=== PATIENT | female | born 1940 | race Caucasian/White ===

== ENCOUNTER → 2018-02-19 | Outpatient (CLI) | payer OTHER | END | disposition home or self-care (01) | LOC: CFH 10:33 | PROVIDERS: ATTEND Nurse Practitioner Family | DX: Z12.31 Encounter for screening mammogram for malignant neoplasm of breast (principal); Z13.820 Encounter for screening for osteoporosis; M85.88 Other specified disorders of bone density and structure, other site; M81.0 Age-related osteoporosis without current pathological fracture; N95.1 Menopausal and female climacteric states | CPT/HCPCS: 77080; 77067 ==

== ENCOUNTER 2019-09-27 14:44 | Emergency (ER) | payer MEDICARE ==
[~2019-09-27] VITALS: Ht 165.1 cm; Wt 67.2 kg
[~2019-09-27 14:44] MED LIST: AZIT500T10 PO; CEFD300C37 PO; LEVO50TA5 PO; LISI-167 PO
--- NOTE | 2019-09-27 14:52 | NUR ---
OCCASIONAL COUGH NOTED. RESP UNLABORED, ABLE TO SPEAK IN COMPLETE SENTENCES W/OUT DIFFICULTY.
--- NOTE | 2019-09-27 15:06 | NUR ---
PT AMBULATES TO ROOM FROM LOBBY WITH STEADY GAIT.
--- NOTE | 2019-09-27 15:46 | NUR ---
PT RESTING IN [facility] ON VS AND CARDIAC MONITORS. VSS. EKG AND XRAY PERFORMED AT BS. PT HAS CALL LIGHT WITHIN REACH AT THIS TIME AND DENIES ANY NEEDS AT THIS MOMENT.
[2019-09-27 15:59] LABS: BASOPHILS # (AUTO) 0.03 x10^3/uL (0-0.1); BASOPHILS % (AUTO) 0 % (0-1); EOSINOPHILS # (AUTO) 0.21 x10^3/uL (0-0.4); EOSINOPHILS % (AUTO) 2 % (1-7); LYMPHOCYTES # (AUTO) 1.45 x10^3/uL (1-3.4); LYMPHOCYTES % (AUTO) 15 % (22-44); MD NO; MEAN CORPUSCULAR HEMOGLOBIN 29.1 pg (27.0-34.8); MEAN CORPUSCULAR HGB CONC 33.4 g/dL (32.4-35.8); MEAN PLATELET VOLUME 8.3 fL (7.4-10.4); MONOCYTES # (AUTO) 0.88 x10^3/uL (0.2-0.8); MONOCYTES % (AUTO) 9 % (2-9); NEUTROPHILS % (AUTO) 74 % (42-75); PLATELET COUNT 465 x10^3/uL (130-400); RED BLOOD COUNT 3.97 x10^6/uL (3.82-5.3); RED CELL DISTRIBUTION WIDTH 13.3 % (9.6-15.2)
[2019-09-27 16:06] LABS: ALBUMIN 2.8 g/dL (3.4-5.0); ANION GAP 6 mmol/L (5-15); CALCIUM 8.4 mg/dL (8.5-10.1); CHLORIDE 107 mmol/L (98-107); CREATININE 0.92 mg/dL (0.55-1.02)
--- NOTE | 2019-09-27 16:20 | NUR ---
PT SWABBED FOR COVID AT THIS TIME.
--- NOTE | 2019-09-27 17:15 | NUR ---
PT D/C WITH D/C SUMMARY AND SCRIPTS. ALL QUESTIONS ANSWERED. PT AMBULATES TO AMBULANCE BAY WITH STEADY GAIT FOR D/C HOME WITH DAUGHTER.PT DENIES ANY OTHER NEEDS PERTAINING TO THIS VISIT.
[2019-09-27 17:20] VITALS: BP 141/69
== END 2019-09-27 17:23 | disposition home or self-care (01) ==
LOC: ED 15:15
DX: R06.00 Dyspnea, unspecified (principal); Z20.828 Contact with and (suspected) exposure to other viral communicable diseases; R05 Cough; R06.02 Shortness of breath; R94.31 Abnormal electrocardiogram [ECG] [EKG]; I10 Essential (primary) hypertension; J45.909 Unspecified asthma, uncomplicated; E03.9 Hypothyroidism, unspecified
CPT/HCPCS: 36415; 71045; 80048; 82040; 85025; 93005; 99285; U0001

== ENCOUNTER 2019-10-10 10:55 | Inpatient (IN) | payer MEDICARE ==
[~2019-10-10] VITALS: Ht 165.1 cm; Wt 65.5 kg
--- NOTE | 2019-10-10 11:33 | NUR ---
PT REPORTS WORSENING SOB, COUGH SINCE BEING HERE ON AND PRESCRIBED ANTIBIOTICS FOR PNEUMONIA. PT WAS PRESCRIBED HOME O2 OF 2 LITERS 2 DAYS AGO BY PMD. PT ON AND IS SATING 96% ON 4 LITERS IN NAD. PT DENIES CP. WAITING FOR ORDERS.
[2019-10-10] MEDS ORDERED: SODIUM CHLORIDE FLUSH 10ML SYR IVF ONE (12:00)
[2019-10-10 12:20] LABS: BASOPHILS # (AUTO) 0.05 x10^3/uL (0-0.1); BASOPHILS % (AUTO) 0 % (0-1); EOSINOPHILS # (AUTO) 0.14 x10^3/uL (0-0.4); EOSINOPHILS % (AUTO) 1 % (1-7); LYMPHOCYTES # (AUTO) 1.08 x10^3/uL (1-3.4); LYMPHOCYTES % (AUTO) 9 % (22-44); MD NO; MEAN CORPUSCULAR HGB CONC 32.5 g/dL (32.4-35.8); MEAN CORPUSCULAR VOLUME 86.2 fL (80-100); MEAN PLATELET VOLUME 8.2 fL (7.4-10.4); MONOCYTES # (AUTO) 0.75 x10^3/uL (0.2-0.8); MONOCYTES % (AUTO) 6 % (2-9); NEUTROPHILS # (AUTO) 9.88 x10^3/uL (1.8-6.8); NEUTROPHILS % (AUTO) 83 % (42-75); PLATELET COUNT 526 x10^3/uL (130-400); RED BLOOD COUNT 3.67 x10^6/uL (3.82-5.3); RED CELL DISTRIBUTION WIDTH 13.9 % (9.6-15.2)
[2019-10-10 12:27] LABS: ALBUMIN 1.8 g/dL (3.4-5.0); ANION GAP 7 mmol/L (5-15); CALCIUM 8.3 mg/dL (8.5-10.1); CHLORIDE 105 mmol/L (98-107)
[2019-10-10 12:29] LABS: ALANINE AMINOTRANSFERASE 68 U/L (12-78); ALKALINE PHOSPHATASE 85 U/L (45-117); BILIRUBIN,TOTAL 0.5 mg/dL (0.2-1.0); CREATININE 0.73 mg/dL (0.55-1.02); TOTAL PROTEIN 6.9 g/dL (6.4-8.2)
--- NOTE | 2019-10-10 12:56 | NUR ---
PT'S OXYGEN INCREASED TO 6 LITERS WHILE PT IS RESTING HER PULSE OX DROPPED TO 89%. CHART HAS BEEN UP FOR RECHECK SINCE 1234.
[2019-10-10] MEDS ORDERED: DOXYCYCLINE 100 MG in DEXTROSE 5% 250 ML IV SCH (13:00)
[2019-10-10] MEDS ORDERED: CEFTRIAXONE PMX 1GM/50ML 50 ML IV ONE (13:00)
[2019-10-10] MEDS ORDERED: CEFTRIAXONE PMX 1GM/50ML 50 ML ONE (13:02)
--- NOTE | 2019-10-10 13:08 | NUR ---
ANTIBIOTICS STARTED AFTER BLOOD CULTURES X2 WERE DRAWN.
--- NOTE | 2019-10-10 13:10 | NUR ---
PER DR. JERRY WE WILL RE-EVALUATE OXYGEN REQUIREMENTS TO DETERMINE LEVEL OF CARE IN 30 MINUTES.
[2019-10-10] MEDS ORDERED: CEFTRIAXONE PMX 1GM/50ML 50 ML IVPB ONE (14:30)
--- NOTE | 2019-10-10 14:47 | NUR ---
REPORT RECEIVED FROM CARLOS HOWARD. PLAN OF CARE DISCUSSED
[2019-10-10] MEDS ORDERED: DOXYCYCLINE 100 MG in DEXTROSE 5% 250 ML IVPB ONE (15:00)
--- NOTE | 2019-10-10 15:29 | NUR ---
Report given to CARLOS Eisenberg. Plan of care discussed.
[2019-10-10] MEDS ORDERED: ACETAMINOPHEN 325 MG TABLET PO PRN (15:30)
[2019-10-10] MEDS ORDERED: ONDANSETRON 2MG/ML, 2ML IVPush PRN (15:30)
[2019-10-10] MEDS ORDERED: ONDANSETRON ODT 4 MG PO PRN (15:30)
[2019-10-10 15:38] LABS: C-REACTIVE PROTEIN, QUANT > 19.00 mg/dL (0.02-0.49)
[2019-10-10 15:50] LABS: D-DIMER (DIC) 1.85 ug/mlFEU (0.00-0.52); PROTIME 12.7 Seconds (9.6-11.5)
[2019-10-10 16:31] VITALS: BP 144/63
[2019-10-10 16:51] LABS: HCT (SEDRATE) 31.6 % (34.6-47.8)
[2019-10-10] MEDS ORDERED: ENOXAPARIN 40 MG/0.4 ML SQ SCH (17:00)
[2019-10-10 19:35] VITALS: BP 122/61
[2019-10-11 01:37] VITALS: BP 111/59
[2019-10-11] MEDS: LISINOPRIL 20 MG TABLET PO SCH (07:53)
[2019-10-11] MEDS: ZINC SULFATE 220 MG CAPSULE PO SCH (07:54)
[2019-10-11] MEDS: CEFTRIAXONE PMX 1GM/50ML 50 ML IV SCH (07:54)
[2019-10-11] MEDS: LEVOTHYROXINE 50 MCG TABLET PO SCH (07:54)
[2019-10-11] MEDS: ASCORBIC ACID 500 MG TABLET PO SCH ×3 (07:54→20:40)
[2019-10-11 08:33] VITALS: BP 167/70
[2019-10-11] MEDS ORDERED: CHOLECALCIFEROL 400 UNITS TABLET PO SCH (09:00)
[2019-10-11] MEDS: AZITHROMYCIN 500 MG in SODIUM CHLORIDE 0.9% 250 ML IV SCH (09:16)
[2019-10-11 12:47] VITALS: BP 147/61
[2019-10-11 19:19] VITALS: BP 124/63
[2019-10-12 02:04] VITALS: BP 124/68
[2019-10-12] MEDS: CEFTRIAXONE PMX 1GM/50ML 50 ML IV SCH (06:17)
[2019-10-12 07:52] VITALS: BP 143/47
[2019-10-12] MEDS: ASCORBIC ACID 500 MG TABLET PO SCH ×3 (09:23→21:12)
[2019-10-12] MEDS: AZITHROMYCIN 500 MG in SODIUM CHLORIDE 0.9% 250 ML IV SCH (09:23)
[2019-10-12] MEDS: LEVOTHYROXINE 50 MCG TABLET PO SCH (09:23)
[2019-10-12] MEDS: methylPREDNISolone SOD SUCC 40 MG/ML IV SCH ×2 (09:23→21:12)
[2019-10-12] MEDS: LISINOPRIL 20 MG TABLET PO SCH (09:23)
[2019-10-12] MEDS: ZINC SULFATE 220 MG CAPSULE PO SCH (09:23)
[2019-10-12] MEDS: ALBUTEROL HFA 90 MCG/SPRAY INH SCH ×3 (11:37→19:59)
[2019-10-12 13:54] VITALS: BP 121/62
[2019-10-12] MEDS: ENOXAPARIN 60 MG/0.6 ML SQ SCH (16:07)
[2019-10-12 19:39] VITALS: BP 116/55
[2019-10-12] MEDS ORDERED: MELATONIN 5 MG TABLET PO SCH (21:00)
[2019-10-13] MEDS: ALBUTEROL HFA 90 MCG/SPRAY INH SCH ×6 (00:03→20:01)
[2019-10-13 01:53] VITALS: BP 122/69
[2019-10-13 05:43] LABS: BASOPHILS # (AUTO) 0.02 x10^3/uL (0-0.1); BASOPHILS % (AUTO) 0 % (0-1); EOSINOPHILS # (AUTO) 0.01 x10^3/uL (0-0.4); EOSINOPHILS % (AUTO) 0 % (1-7); LYMPHOCYTES # (AUTO) 0.86 x10^3/uL (1-3.4); LYMPHOCYTES % (AUTO) 11 % (22-44); MD NO; MEAN CORPUSCULAR HEMOGLOBIN 27.6 pg (27.0-34.8); MEAN CORPUSCULAR HGB CONC 32.1 g/dL (32.4-35.8); MEAN PLATELET VOLUME 8.2 fL (7.4-10.4); MONOCYTES # (AUTO) 0.14 x10^3/uL (0.2-0.8); MONOCYTES % (AUTO) 2 % (2-9); NEUTROPHILS # (AUTO) 7.08 x10^3/uL (1.8-6.8); NEUTROPHILS % (AUTO) 87 % (42-75); PLATELET COUNT 570 x10^3/uL (130-400); RED BLOOD COUNT 3.61 x10^6/uL (3.82-5.3)
[2019-10-13 06:02] LABS: CHLORIDE 106 mmol/L (98-107)
[2019-10-13 06:13] LABS: ANION GAP 6 mmol/L (5-15); CALCIUM 8.5 mg/dL (8.5-10.1); CREATININE 0.68 mg/dL (0.55-1.02)
[2019-10-13] MEDS: CEFTRIAXONE PMX 1GM/50ML 50 ML IV SCH (06:15)
[2019-10-13 08:04] VITALS: BP 131/69
[2019-10-13] MEDS: LEVOTHYROXINE 50 MCG TABLET PO SCH (08:14)
[2019-10-13] MEDS: AZITHROMYCIN 500 MG in SODIUM CHLORIDE 0.9% 250 ML IV SCH (08:14)
[2019-10-13] MEDS: ZINC SULFATE 220 MG CAPSULE PO SCH (08:14)
[2019-10-13] MEDS: LISINOPRIL 20 MG TABLET PO SCH (08:14)
[2019-10-13] MEDS: ASCORBIC ACID 500 MG TABLET PO SCH ×3 (08:14→20:01)
[2019-10-13] MEDS: CHOLECALCIFEROL 1,000 UNIT TABLET PO SCH (08:16)
[2019-10-13] MEDS: methylPREDNISolone SOD SUCC 40 MG/ML IV SCH ×2 (08:16→20:01)
[2019-10-13 12:08] VITALS: BP 135/62
[2019-10-13 14:53] LABS: CLOSTRIDIUM DIFFICILE ANTIGEN NEGATIVE; CLOSTRIDIUM DIFFICILE TOXIN NEGATIVE (Negative)
[2019-10-13] MEDS: ENOXAPARIN 60 MG/0.6 ML SQ SCH (15:56)
[2019-10-13 19:21] VITALS: BP 130/65
[2019-10-13] MEDS: MELATONIN 5 MG TABLET PO SCH (22:09)
[2019-10-14] MEDS: ALBUTEROL HFA 90 MCG/SPRAY INH SCH ×6 (00:17→21:06)
[2019-10-14 00:19] VITALS: BP 127/71
[2019-10-14] MEDS: CEFTRIAXONE PMX 1GM/50ML 50 ML IV SCH (06:09)
[2019-10-14 06:20] VITALS: BP 124/64
[2019-10-14] MEDS: methylPREDNISolone SOD SUCC 40 MG/ML IV SCH ×2 (09:17→21:06)
[2019-10-14] MEDS: ZINC SULFATE 220 MG CAPSULE PO SCH (09:17)
[2019-10-14] MEDS: AZITHROMYCIN 500 MG in SODIUM CHLORIDE 0.9% 250 ML IV SCH (09:17)
[2019-10-14] MEDS: CHOLECALCIFEROL 1,000 UNIT TABLET PO SCH (09:18)
[2019-10-14] MEDS: LEVOTHYROXINE 50 MCG TABLET PO SCH (09:18)
[2019-10-14] MEDS: ASCORBIC ACID 500 MG TABLET PO SCH ×3 (09:18→21:06)
[2019-10-14] MEDS: LISINOPRIL 20 MG TABLET PO SCH (09:18)
[2019-10-14 12:27] VITALS: BP 130/67
[2019-10-14] MEDS ORDERED: OMNIPAQUE 350 MG/ML, 100ML BOTTLE ONE (12:45)
[2019-10-14 20:53] VITALS: BP 130/63
[2019-10-14] MEDS: ENOXAPARIN 60 MG/0.6 ML SQ SCH (21:06)
[2019-10-14] MEDS: MELATONIN 5 MG TABLET PO SCH (21:06)
[2019-10-15] MEDS: ALBUTEROL HFA 90 MCG/SPRAY INH SCH ×6 (00:47→21:00)
[2019-10-15 02:21] VITALS: BP 131/68
[2019-10-15] MEDS: CEFTRIAXONE PMX 1GM/50ML 50 ML IV SCH (06:11)
[2019-10-15 06:23] LABS: BASOPHILS # (AUTO) 0.05 x10^3/uL (0-0.1); BASOPHILS % (AUTO) 0 % (0-1); EOSINOPHILS # (AUTO) 0.06 x10^3/uL (0-0.4); EOSINOPHILS % (AUTO) 1 % (1-7); LYMPHOCYTES % (AUTO) 8 % (22-44); MD NO; MEAN CORPUSCULAR HEMOGLOBIN 27.9 pg (27.0-34.8); MEAN CORPUSCULAR HGB CONC 32.5 g/dL (32.4-35.8); MEAN CORPUSCULAR VOLUME 85.7 fL (80-100); MEAN PLATELET VOLUME 8.2 fL (7.4-10.4); MONOCYTES % (AUTO) 2 % (2-9); NEUTROPHILS # (AUTO) 12.17 x10^3/uL (1.8-6.8); NEUTROPHILS % (AUTO) 89 % (42-75); PLATELET COUNT 613 x10^3/uL (130-400); RED BLOOD COUNT 3.65 x10^6/uL (3.82-5.3); RED CELL DISTRIBUTION WIDTH 14.1 % (9.6-15.2)
[2019-10-15 06:36] LABS: ANION GAP 6 mmol/L (5-15); CALCIUM 8.4 mg/dL (8.5-10.1); CHLORIDE 108 mmol/L (98-107)
[2019-10-15 06:42] LABS: CREATININE 0.74 mg/dL (0.55-1.02)
[2019-10-15 07:33] VITALS: BP 137/67
[2019-10-15] MEDS: LEVOTHYROXINE 50 MCG TABLET PO SCH (08:01)
[2019-10-15] MEDS ORDERED: FUROSEMIDE 40 MG/4 ML IV ONE (09:30)
[2019-10-15] MEDS: ASCORBIC ACID 500 MG TABLET PO SCH ×3 (09:40→20:31)
[2019-10-15] MEDS: ZINC SULFATE 220 MG CAPSULE PO SCH (09:40)
[2019-10-15] MEDS: CHOLECALCIFEROL 1,000 UNIT TABLET PO SCH (09:40)
[2019-10-15] MEDS: LISINOPRIL 20 MG TABLET PO SCH (09:40)
[2019-10-15] MEDS: AZITHROMYCIN 500 MG in SODIUM CHLORIDE 0.9% 250 ML IV SCH (09:41)
[2019-10-15] MEDS: methylPREDNISolone SOD SUCC 40 MG/ML IV SCH ×2 (09:50→20:31)
[2019-10-15] MEDS ORDERED: FENTANYL PF 100 MCG/2ML ONE (11:53)
[2019-10-15] MEDS ORDERED: MIDAZOLAM 1 MG/ML, 5ML ONE (11:53)
[2019-10-15 13:30] VITALS: BP 133/66
[2019-10-15 19:32] VITALS: BP 146/67
[2019-10-15] MEDS: ENOXAPARIN 60 MG/0.6 ML SQ SCH (20:30)
[2019-10-15] MEDS: MELATONIN 5 MG TABLET PO SCH ×2 (20:31→21:00)
[2019-10-16] MEDS: ALBUTEROL HFA 90 MCG/SPRAY INH SCH ×6 (01:01→22:43)
[2019-10-16 01:05] VITALS: BP 144/69
[2019-10-16] MEDS: ZINC SULFATE 220 MG CAPSULE PO SCH (08:26)
[2019-10-16] MEDS: CEFTRIAXONE PMX 1GM/50ML 50 ML IV SCH (08:26)
[2019-10-16] MEDS: LISINOPRIL 20 MG TABLET PO SCH (08:26)
[2019-10-16] MEDS: ASCORBIC ACID 500 MG TABLET PO SCH ×3 (08:26→22:32)
[2019-10-16] MEDS: LEVOTHYROXINE 50 MCG TABLET PO SCH (08:27)
[2019-10-16] MEDS: CHOLECALCIFEROL 1,000 UNIT TABLET PO SCH (08:27)
[2019-10-16] MEDS: methylPREDNISolone SOD SUCC 40 MG/ML IV SCH ×2 (08:28→22:32)
[2019-10-16 08:32] VITALS: BP 151/70
[2019-10-16] MEDS ORDERED: FUROSEMIDE 40 MG/4 ML IV ONE (10:00)
[2019-10-16] MEDS: AZITHROMYCIN 500 MG in SODIUM CHLORIDE 0.9% 250 ML IV SCH (10:13)
[2019-10-16 14:04] VITALS: BP 159/72
[2019-10-16 19:25] VITALS: BP 145/80
[2019-10-16] MEDS: ENOXAPARIN 60 MG/0.6 ML SQ SCH (22:32)
[2019-10-16] MEDS: MELATONIN 5 MG TABLET PO SCH (22:32)
[2019-10-17 01:01] VITALS: BP 149/71
[2019-10-17] MEDS: ALBUTEROL HFA 90 MCG/SPRAY INH SCH ×4 (02:07→14:00)
[2019-10-17] MEDS ORDERED: LEVOTHYROXINE 50 MCG TABLET PO SCH (06:00)
[2019-10-17 07:07] VITALS: BP 156/78
[2019-10-17] MEDS: CEFTRIAXONE PMX 1GM/50ML 50 ML IV SCH (08:12)
[2019-10-17] MEDS ORDERED: [UNRECOGNIZED DRUG - REMARK] XX ONE (08:30)
[2019-10-17] MEDS: CHOLECALCIFEROL 1,000 UNIT TABLET PO SCH (09:06)
[2019-10-17] MEDS: AZITHROMYCIN 500 MG in SODIUM CHLORIDE 0.9% 250 ML IV SCH (09:07)
[2019-10-17] MEDS: ASCORBIC ACID 500 MG TABLET PO SCH ×2 (09:07→16:12)
[2019-10-17] MEDS: LISINOPRIL 20 MG TABLET PO SCH (09:07)
[2019-10-17] MEDS: ZINC SULFATE 220 MG CAPSULE PO SCH (09:07)
[2019-10-17] MEDS: methylPREDNISolone SOD SUCC 40 MG/ML IV SCH (09:07)
[2019-10-17] MEDS ORDERED: FUROSEMIDE 40 MG/4 ML IV ONE (11:00)
[2019-10-17 13:12] VITALS: BP 125/61
[2019-10-17] MEDS ORDERED: MELA5TAB14 PO (14:07)
[2019-10-17] MEDS ORDERED: CHOL10003 PO (14:07)
[2019-10-17] MEDS ORDERED: ZINC220C7 PO (14:07)
[2019-10-17] MEDS ORDERED: ASCO500T9 PO (14:07)
[2019-10-17] MEDS ORDERED: ALBU18HF INH (14:07)
[2019-10-17] MEDS ORDERED: AMOX1TAB64 PO (14:07)
[2019-10-17] MEDS ORDERED: PRED10TA PO (15:37)
== END 2019-10-17 17:44 | disposition home or self-care (01) | DRG 177 ==
LOC: ED 13:12 → EDIP 13:13 → ED 13:26 → 4NW 16:29 → 3N 10-15 18:38
PROVIDERS: ADMIT Hospitalist; ATTEND Internal Medicine
PROC: 0B9D8ZX Drainage of Right Middle Lung Lobe, Via Natural or Artificial Opening Endoscopic, Diagnostic (ICD-10-PCS; principal; 2019-10-15 12:30)
DX: J15.6 Pneumonia due to other Gram-negative bacteria (principal); J96.01 Acute respiratory failure with hypoxia; E44.0 Moderate protein-calorie malnutrition; Z20.828 Contact with and (suspected) exposure to other viral communicable diseases; D64.9 Anemia, unspecified; D72.810 Lymphocytopenia; E03.9 Hypothyroidism, unspecified; I10 Essential (primary) hypertension; J45.909 Unspecified asthma, uncomplicated; Z79.899 Other long term (current) drug therapy; Z68.24 Body mass index [BMI] 24.0-24.9, adult
CPT/HCPCS: 31622; 36415; 71045; 71275; 80048; 80053; 82728; 83605; 83615; 83880; 84145; 85025; 85049; 85379; 85384; 85610; 85651; 85730; 86140; 86713; 86738; 87015; 87040; 87070; 87102; 87116; 87205; 87206; 87324; 87486; 87581; 87633; 87798; 88108; 88112; 88305; 88312; 93005; 96365; 96375; 99152; 99153; 99291; G0378; J0456; J0696; J1650; J1940; J2250; J3010; J7060; Q9967; J2920; J7050; U0001-CS

== ENCOUNTER 2019-11-04 16:10 | Outpatient (CLI) | payer MEDICARE ==
[~2019-11-04 16:10] MED LIST changes: +ALBU18HF INH; +AMOX1TAB64 PO; +ASCO500T9 PO; +CHOL10003 PO; +MELA5TAB14 PO; +PRED10TA PO; +ZINC220C7 PO
[2019-11-10] MEDS ORDERED: CA C1TAB60 PO (23:36)
[2019-11-16] MEDS ORDERED: AZIT500T10 PO ×2 (10:58)
[2019-11-16] MEDS ORDERED: CEFD300C37 PO ×2 (10:58)
== END 2019-11-04 23:59 | disposition home or self-care (01) ==
LOC: RAD 16:10
PROVIDERS: ATTEND Internal Medicine
DX: J18.8 Other pneumonia, unspecified organism (principal)
CPT/HCPCS: 71046

== ENCOUNTER 2019-11-25 18:05 | Inpatient (IN) | payer MEDICARE ==
[~2019-11-25] VITALS: Ht 165.1 cm; Wt 59.0 kg
[~2019-11-25 18:05] MED LIST changes: +CA C1TAB60 PO
[2019-11-25] MEDS ORDERED: SODIUM CHLORIDE FLUSH 10ML SYR IVF ONE (19:00)
[2019-11-25 19:20] LABS: BASOPHILS # (AUTO) 0.06 x10^3/uL (0-0.1); BASOPHILS % (AUTO) 0 % (0-1); EOSINOPHILS # (AUTO) 0.09 x10^3/uL (0-0.4); EOSINOPHILS % (AUTO) 1 % (1-7); LYMPHOCYTES # (AUTO) 1.39 x10^3/uL (1-3.4); LYMPHOCYTES % (AUTO) 9 % (22-44); MD NO; MEAN CORPUSCULAR HEMOGLOBIN 26.8 pg (27.0-34.8); MEAN CORPUSCULAR HGB CONC 31.9 g/dL (32.4-35.8); MEAN CORPUSCULAR VOLUME 83.8 fL (80-100); MEAN PLATELET VOLUME 8.2 fL (7.4-10.4); MONOCYTES # (AUTO) 0.93 x10^3/uL (0.2-0.8); MONOCYTES % (AUTO) 6 % (2-9); NEUTROPHILS # (AUTO) 13.31 x10^3/uL (1.8-6.8); NEUTROPHILS % (AUTO) 84 % (42-75); PLATELET COUNT 433 x10^3/uL (130-400); RED BLOOD COUNT 3.39 x10^6/uL (3.82-5.3); RED CELL DISTRIBUTION WIDTH 17.9 % (9.6-15.2)
[2019-11-25 19:24] LABS: ALBUMIN 2.1 g/dL (3.4-5.0); ANION GAP 7 mmol/L (5-15); CALCIUM 9.2 mg/dL (8.5-10.1); CHLORIDE 100 mmol/L (98-107); CREATININE 0.81 mg/dL (0.55-1.02)
[2019-11-25 19:27] LABS: TROPONIN I < 0.015 ng/mL (0.000-0.045)
--- NOTE | 2019-11-25 20:38 | NUR ---
PT UP TO BEDSIDE COMMODE WITH NO ASSISTANCE NECESSARY. CALL LIGHT IN REACH. IV SUPPLIES AT BEDSIDE.
--- NOTE | 2019-11-25 20:51 | NUR ---
HOSPITALIST AT BEDSIDE.
[2019-11-25] MEDS ORDERED: VANCOMYCIN PER PHARMACY MC PRN (21:30)
[2019-11-25] MEDS ORDERED: OXYcodone/APAP 5/325MG TABLET PO PRN (21:30)
[2019-11-25] MEDS ORDERED: SODIUM CHLORIDE 0.9% 1,000ML IVBOLUS ONE (21:30)
[2019-11-25] MEDS ORDERED: CYCLOBENZAPRINE 10 MG TABLET PO PRN (21:30)
[2019-11-25] MEDS ORDERED: morphine SULFATE 10 MG/ML, 1ML IVPush PRN (21:30)
[2019-11-25] MEDS ORDERED: ALBUTEROL HFA 90 MCG/SPRAY INH PRN (21:30)
[2019-11-25] MEDS ORDERED: hydrALAzine 20 MG/ML, 1ML IVPush PRN (21:30)
[2019-11-25] MEDS ORDERED: TEMAZEPAM 15 MG CAPSULE PO PRN (21:30)
[2019-11-25] MEDS ORDERED: ONDANSETRON 2MG/ML, 2ML IVPush PRN (21:30)
--- NOTE | 2019-11-25 21:35 | NUR ---
TP RN: PER [facility] NO COVID TESING NEEDED ON THIS PT.
--- NOTE | 2019-11-25 22:19 | NUR ---
REPORT TO CARLOS CORONEL. PT AWAITING TRANSPORT AT THIS TIME.
[2019-11-25] MEDS: AZITHROMYCIN 500 MG in SODIUM CHLORIDE 0.9% 250 ML IV SCH (22:26)
[2019-11-25 22:39] VITALS: BP 126/72
[2019-11-25] MEDS: ENOXAPARIN 40 MG/0.4 ML SQ SCH (22:50)
[2019-11-25] MEDS ORDERED: PHARMACOKINETIC CONSULTATION MC ONE (23:00)
[2019-11-25] MEDS ORDERED: VANCOMYCIN 1,600 MG in SODIUM CHLORIDE 0.9% 250 ML IV ONE (23:00)
[2019-11-25] MEDS ORDERED: PHARMACOKINETIC MONITORING MC PRN (23:00)
[2019-11-25] MEDS: GUAIFENESIN/DM 200-20MG, 10ML UDC PO PRN (23:23)
[2019-11-26 00:51] VITALS: BP 99/62
[2019-11-26] MEDS: PIPERACILLIN/TAZO/PMX 3.375GM 50 ML IV SCH ×4 (02:13→23:49)
[2019-11-26 04:45] LABS: BASOPHILS # (AUTO) 0.03 x10^3/uL (0-0.1); BASOPHILS % (AUTO) 0 % (0-1); EOSINOPHILS # (AUTO) 0.14 x10^3/uL (0-0.4); EOSINOPHILS % (AUTO) 1 % (1-7); LYMPHOCYTES % (AUTO) 12 % (22-44); MD NO; MEAN CORPUSCULAR HEMOGLOBIN 27.4 pg (27.0-34.8); MEAN CORPUSCULAR HGB CONC 32.2 g/dL (32.4-35.8); MEAN CORPUSCULAR VOLUME 85.2 fL (80-100); MONOCYTES # (AUTO) 0.83 x10^3/uL (0.2-0.8); MONOCYTES % (AUTO) 7 % (2-9); NEUTROPHILS # (AUTO) 8.98 x10^3/uL (1.8-6.8); NEUTROPHILS % (AUTO) 79 % (42-75); PLATELET COUNT 376 x10^3/uL (130-400); RED BLOOD COUNT 3.03 x10^6/uL (3.82-5.3)
[2019-11-26 04:53] LABS: ANION GAP 5 mmol/L (5-15); CALCIUM 8.4 mg/dL (8.5-10.1); CHLORIDE 105 mmol/L (98-107)
[2019-11-26 05:06] LABS: CREATININE 0.68 mg/dL (0.55-1.02)
[2019-11-26 07:22] VITALS: BP 131/71
[2019-11-26] MEDS ORDERED: FAMOTIDINE 40 MG TABLET ONE (07:46)
[2019-11-26] MEDS: CALCIUM/VITAMIN D3 250-125 TABLET PO SCH (07:49)
[2019-11-26] MEDS: CHOLECALCIFEROL 1,000 UNIT TABLET PO SCH (07:49)
[2019-11-26] MEDS: LEVOTHYROXINE 50 MCG TABLET PO SCH (07:49)
[2019-11-26] MEDS: GUAIFENESIN/DM 200-20MG, 10ML UDC PO PRN ×2 (07:52→19:33)
[2019-11-26] MEDS ORDERED: FAMOTIDINE 20 MG TABLET PO SCH (09:00)
[2019-11-26] MEDS ORDERED: OMNIPAQUE 350 MG/ML, 75ML BOTTLE ONE (09:24)
[2019-11-26 12:24] VITALS: BP 92/49
[2019-11-26 19:18] VITALS: BP 133/62
[2019-11-26] MEDS: AZITHROMYCIN 500 MG in SODIUM CHLORIDE 0.9% 250 ML IV SCH (22:31)
[2019-11-26] MEDS: ENOXAPARIN 40 MG/0.4 ML SQ SCH (22:31)
[2019-11-27 00:15] VITALS: BP 102/63
[2019-11-27] MEDS: VANCOMYCIN 1,300 MG in SODIUM CHLORIDE 0.9% 250 ML IV SCH (00:28)
[2019-11-27] MEDS: LEVOTHYROXINE 50 MCG TABLET PO SCH (05:28)
[2019-11-27 06:58] LABS: BASOPHILS # (AUTO) 0.06 x10^3/uL (0-0.1); BASOPHILS % (AUTO) 1 % (0-1); EOSINOPHILS # (AUTO) 0.18 x10^3/uL (0-0.4); EOSINOPHILS % (AUTO) 2 % (1-7); LYMPHOCYTES # (AUTO) 1.31 x10^3/uL (1-3.4); LYMPHOCYTES % (AUTO) 13 % (22-44); MD NO; MEAN CORPUSCULAR HEMOGLOBIN 26.5 pg (27.0-34.8); MEAN CORPUSCULAR HGB CONC 31.2 g/dL (32.4-35.8); MEAN CORPUSCULAR VOLUME 84.9 fL (80-100); MONOCYTES # (AUTO) 0.75 x10^3/uL (0.2-0.8); MONOCYTES % (AUTO) 7 % (2-9); NEUTROPHILS # (AUTO) 7.74 x10^3/uL (1.8-6.8); NEUTROPHILS % (AUTO) 77 % (42-75); PLATELET COUNT 378 x10^3/uL (130-400); RED BLOOD COUNT 2.85 x10^6/uL (3.82-5.3); RED CELL DISTRIBUTION WIDTH 17.4 % (9.6-15.2)
[2019-11-27 07:09] LABS: CHLORIDE 105 mmol/L (98-107)
[2019-11-27 07:13] LABS: ALBUMIN 1.7 g/dL (3.4-5.0); ANION GAP 7 mmol/L (5-15); CALCIUM 8.2 mg/dL (8.5-10.1)
[2019-11-27 08:57] VITALS: BP 96/57
[2019-11-27] MEDS: PIPERACILLIN/TAZO/PMX 3.375GM 50 ML IV SCH ×2 (09:13→18:35)
[2019-11-27 09:30] VITALS: BP 108/64
[2019-11-27] MEDS: LISINOPRIL 20 MG TABLET PO SCH (09:36)
[2019-11-27] MEDS: CHOLECALCIFEROL 1,000 UNIT TABLET PO SCH (09:37)
[2019-11-27] MEDS: FAMOTIDINE 20 MG TABLET PO SCH (09:38)
[2019-11-27] MEDS: CALCIUM/VITAMIN D3 250-125 TABLET PO SCH (09:39)
[2019-11-27] MEDS: GUAIFENESIN/DM 200-20MG, 10ML UDC PO PRN ×2 (10:31→20:51)
[2019-11-27] MEDS ORDERED: MAGNESIUM SULFATE PMX 2GM/50ML 50 ML IV ONE (14:00)
[2019-11-27 15:52] VITALS: BP 108/68
[2019-11-27 20:34] VITALS: BP 156/64
[2019-11-27] MEDS: ENOXAPARIN 40 MG/0.4 ML SQ SCH (22:32)
[2019-11-27] MEDS: AZITHROMYCIN 500 MG in SODIUM CHLORIDE 0.9% 250 ML IV SCH (22:32)
[2019-11-28] MEDS: VANCOMYCIN 1,300 MG in SODIUM CHLORIDE 0.9% 250 ML IV SCH (00:08)
[2019-11-28] MEDS: PIPERACILLIN/TAZO/PMX 3.375GM 50 ML IV SCH ×3 (02:06→18:10)
[2019-11-28 02:50] VITALS: BP 125/66
[2019-11-28] MEDS: GUAIFENESIN/DM 200-20MG, 10ML UDC PO PRN ×2 (03:00→21:47)
[2019-11-28 05:18] VITALS: BP 128/66
[2019-11-28] MEDS: LEVOTHYROXINE 50 MCG TABLET PO SCH (05:34)
[2019-11-28 05:36] LABS: BASOPHILS # (AUTO) 0.04 x10^3/uL (0-0.1); BASOPHILS % (AUTO) 1 % (0-1); EOSINOPHILS # (AUTO) 0.22 x10^3/uL (0-0.4); EOSINOPHILS % (AUTO) 2 % (1-7); LYMPHOCYTES # (AUTO) 1.45 x10^3/uL (1-3.4); LYMPHOCYTES % (AUTO) 15 % (22-44); MD NO; MEAN CORPUSCULAR HEMOGLOBIN 26.9 pg (27.0-34.8); MEAN CORPUSCULAR HGB CONC 31.8 g/dL (32.4-35.8); MEAN CORPUSCULAR VOLUME 84.6 fL (80-100); MONOCYTES # (AUTO) 0.81 x10^3/uL (0.2-0.8); MONOCYTES % (AUTO) 9 % (2-9); NEUTROPHILS # (AUTO) 7.01 x10^3/uL (1.8-6.8); NEUTROPHILS % (AUTO) 74 % (42-75); PLATELET COUNT 385 x10^3/uL (130-400); RED BLOOD COUNT 2.84 x10^6/uL (3.82-5.3); RED CELL DISTRIBUTION WIDTH 17.5 % (9.6-15.2)
[2019-11-28 05:45] LABS: ANION GAP 7 mmol/L (5-15); CALCIUM 7.9 mg/dL (8.5-10.1); CHLORIDE 108 mmol/L (98-107)
[2019-11-28 05:46] LABS: CREATININE 0.65 mg/dL (0.55-1.02)
[2019-11-28 07:15] VITALS: BP 125/73
[2019-11-28] MEDS: CALCIUM/VITAMIN D3 250-125 TABLET PO SCH (09:06)
[2019-11-28] MEDS: CHOLECALCIFEROL 1,000 UNIT TABLET PO SCH (09:07)
[2019-11-28] MEDS: FAMOTIDINE 20 MG TABLET PO SCH ×2 (09:08→21:47)
[2019-11-28] MEDS: LISINOPRIL 20 MG TABLET PO SCH (09:08)
[2019-11-28 13:15] VITALS: BP 109/66
[2019-11-28 19:59] VITALS: BP 124/76
[2019-11-28] MEDS: ENOXAPARIN 40 MG/0.4 ML SQ SCH (21:49)
[2019-11-28] MEDS: AZITHROMYCIN 500 MG in SODIUM CHLORIDE 0.9% 250 ML IV SCH (22:42)
[2019-11-29] MEDS: VANCOMYCIN 1,300 MG in SODIUM CHLORIDE 0.9% 250 ML IV SCH (00:30)
[2019-11-29 01:45] VITALS: BP 110/68
[2019-11-29] MEDS: PIPERACILLIN/TAZO/PMX 3.375GM 50 ML IV SCH ×3 (02:24→17:42)
[2019-11-29 05:42] VITALS: BP 132/72
[2019-11-29] MEDS: LEVOTHYROXINE 50 MCG TABLET PO SCH (05:47)
[2019-11-29 06:50] VITALS: BP 131/72
[2019-11-29 07:50] LABS: BASOPHILS # (AUTO) 0.04 x10^3/uL (0-0.1); BASOPHILS % (AUTO) 1 % (0-1); EOSINOPHILS # (AUTO) 0.26 x10^3/uL (0-0.4); EOSINOPHILS % (AUTO) 3 % (1-7); LYMPHOCYTES # (AUTO) 1.11 x10^3/uL (1-3.4); LYMPHOCYTES % (AUTO) 13 % (22-44); MD NO; MEAN CORPUSCULAR HEMOGLOBIN 26.7 pg (27.0-34.8); MEAN CORPUSCULAR HGB CONC 31.6 g/dL (32.4-35.8); MEAN CORPUSCULAR VOLUME 84.5 fL (80-100); MEAN PLATELET VOLUME 7.8 fL (7.4-10.4); MONOCYTES # (AUTO) 0.58 x10^3/uL (0.2-0.8); MONOCYTES % (AUTO) 7 % (2-9); NEUTROPHILS # (AUTO) 6.54 x10^3/uL (1.8-6.8); NEUTROPHILS % (AUTO) 77 % (42-75); PLATELET COUNT 393 x10^3/uL (130-400); RED CELL DISTRIBUTION WIDTH 17.5 % (9.6-15.2)
[2019-11-29 08:10] LABS: ANION GAP 6 mmol/L (5-15); CALCIUM 8.4 mg/dL (8.5-10.1); CHLORIDE 108 mmol/L (98-107)
[2019-11-29 08:11] LABS: CREATININE 0.66 mg/dL (0.55-1.02)
[2019-11-29] MEDS ORDERED: FAMOTIDINE 40 MG TABLET ONE ×2 (09:07→21:12)
[2019-11-29] MEDS: CALCIUM/VITAMIN D3 250-125 TABLET PO SCH (09:22)
[2019-11-29] MEDS: FAMOTIDINE 20 MG TABLET PO SCH (09:23)
[2019-11-29] MEDS: LISINOPRIL 20 MG TABLET PO SCH (09:23)
[2019-11-29] MEDS: CHOLECALCIFEROL 1,000 UNIT TABLET PO SCH (09:23)
[2019-11-29 12:20] VITALS: BP 103/59
[2019-11-29 19:42] VITALS: BP 125/74
[2019-11-29] MEDS: FAMOTIDINE 10 MG TAB PO SCH (22:28)
[2019-11-29] MEDS: AZITHROMYCIN 500 MG in SODIUM CHLORIDE 0.9% 250 ML IV SCH (22:31)
[2019-11-29] MEDS: ENOXAPARIN 40 MG/0.4 ML SQ SCH (22:32)
[2019-11-30 01:23] VITALS: BP 106/70
[2019-11-30] MEDS: PIPERACILLIN/TAZO/PMX 3.375GM 50 ML IV SCH ×2 (02:28→10:03)
[2019-11-30 06:10] VITALS: BP 118/76
[2019-11-30] MEDS: LEVOTHYROXINE 50 MCG TABLET PO SCH (06:13)
[2019-11-30 06:22] LABS: BASOPHILS # (AUTO) 0.27 x10^3/uL (0-0.1); BASOPHILS % (AUTO) 4 % (0-1); EOSINOPHILS # (AUTO) 0.33 x10^3/uL (0-0.4); EOSINOPHILS % (AUTO) 5 % (1-7); LYMPHOCYTES # (AUTO) 1.69 x10^3/uL (1-3.4); LYMPHOCYTES % (AUTO) 23 % (22-44); MD NO; MEAN CORPUSCULAR HEMOGLOBIN 27.5 pg (27.0-34.8); MEAN CORPUSCULAR HGB CONC 32.9 g/dL (32.4-35.8); MEAN CORPUSCULAR VOLUME 83.7 fL (80-100); MEAN PLATELET VOLUME 8.3 fL (7.4-10.4); MONOCYTES # (AUTO) 0.67 x10^3/uL (0.2-0.8); MONOCYTES % (AUTO) 9 % (2-9); NEUTROPHILS # (AUTO) 4.29 x10^3/uL (1.8-6.8); NEUTROPHILS % (AUTO) 59 % (42-75); PLATELET COUNT 422 x10^3/uL (130-400); RED BLOOD COUNT 2.91 x10^6/uL (3.82-5.3); RED CELL DISTRIBUTION WIDTH 17.7 % (9.6-15.2)
[2019-11-30 06:32] LABS: CHLORIDE 107 mmol/L (98-107)
[2019-11-30 06:41] LABS: ANION GAP 5 mmol/L (5-15); CALCIUM 8.2 mg/dL (8.5-10.1); CREATININE 0.74 mg/dL (0.55-1.02)
[2019-11-30 06:52] VITALS: BP 124/68
[2019-11-30] MEDS: CALCIUM/VITAMIN D3 250-125 TABLET PO SCH (08:31)
[2019-11-30] MEDS: LISINOPRIL 20 MG TABLET PO SCH (08:31)
[2019-11-30] MEDS: FAMOTIDINE 10 MG TAB PO SCH ×2 (08:32→20:33)
[2019-11-30] MEDS: CHOLECALCIFEROL 1,000 UNIT TABLET PO SCH (08:32)
[2019-11-30 14:31] VITALS: BP 126/73
[2019-11-30 20:19] VITALS: BP 146/76
[2019-11-30] MEDS: LACTOBACILLUS CHEW TABLET PO SCH (20:32)
[2019-11-30] MEDS: ENOXAPARIN 40 MG/0.4 ML SQ SCH (23:00)
[2019-12-01 00:57] VITALS: BP 133/74
[2019-12-01 05:43] LABS: ANION GAP 5 mmol/L (5-15); CALCIUM 9.2 mg/dL (8.5-10.1); CHLORIDE 107 mmol/L (98-107)
[2019-12-01 05:44] LABS: BASOPHILS # (AUTO) 0.05 x10^3/uL (0-0.1); BASOPHILS % (AUTO) 1 % (0-1); CREATININE 0.68 mg/dL (0.55-1.02); EOSINOPHILS % (AUTO) 5 % (1-7); LYMPHOCYTES # (AUTO) 2.77 x10^3/uL (1-3.4); LYMPHOCYTES % (AUTO) 27 % (22-44); MD NO; MEAN CORPUSCULAR HEMOGLOBIN 27.3 pg (27.0-34.8); MEAN CORPUSCULAR HGB CONC 32.4 g/dL (32.4-35.8); MEAN CORPUSCULAR VOLUME 84.2 fL (80-100); MEAN PLATELET VOLUME 8.1 fL (7.4-10.4); MONOCYTES # (AUTO) 0.74 x10^3/uL (0.2-0.8); MONOCYTES % (AUTO) 7 % (2-9); NEUTROPHILS # (AUTO) 6.14 x10^3/uL (1.8-6.8); NEUTROPHILS % (AUTO) 60 % (42-75); PLATELET COUNT 555 x10^3/uL (130-400); RED BLOOD COUNT 3.29 x10^6/uL (3.82-5.3); RED CELL DISTRIBUTION WIDTH 17.6 % (9.6-15.2)
[2019-12-01] MEDS: LEVOTHYROXINE 50 MCG TABLET PO SCH (06:00)
[2019-12-01 07:07] VITALS: BP 133/74
[2019-12-01] MEDS: LACTOBACILLUS CHEW TABLET PO SCH ×3 (07:47→20:50)
[2019-12-01] MEDS: FAMOTIDINE 10 MG TAB PO SCH ×2 (07:47→20:50)
[2019-12-01] MEDS: CALCIUM/VITAMIN D3 250-125 TABLET PO SCH (07:47)
[2019-12-01] MEDS: LISINOPRIL 20 MG TABLET PO SCH (07:47)
[2019-12-01] MEDS: CHOLECALCIFEROL 1,000 UNIT TABLET PO SCH (07:47)
[2019-12-01 13:01] VITALS: BP 133/74
[2019-12-01 13:03] VITALS: BP 127/74
[2019-12-01] MEDS ORDERED: BUPIVACAINE/PF-EPI 0.5% 1:200K ONE (17:20)
[2019-12-01] MEDS ORDERED: morphine SULFATE 10 MG/ML, 1ML IVPush PRN ×2 (17:30→19:00)
[2019-12-01] MEDS ORDERED: hydrALAzine 20 MG/ML, 1ML IV PRN (17:30)
[2019-12-01] MEDS ORDERED: MEPERIDINE/PF 25MG/0.5ML IVPush PRN (17:30)
[2019-12-01] MEDS ORDERED: HALOPERIDOL 5 MG/ML IV PRN (17:30)
[2019-12-01] MEDS ORDERED: LABETALOL 5MG/ML, 20ML IV PRN (17:30)
[2019-12-01] MEDS ORDERED: ALBUTEROL SULFATE 2.5 MG/3 ML NPPB PRN (17:30)
[2019-12-01] MEDS ORDERED: PROMETHAZINE 25 MG/ML, 1ML IVPush PRN (17:30)
[2019-12-01] MEDS ORDERED: HYDROmorphone 1 MG/ML, 1ML INJ IVPush PRN (17:30)
[2019-12-01] MEDS ORDERED: FENTANYL PF 100 MCG/2ML IV PRN (17:30)
[2019-12-01] MEDS ORDERED: OXYcodone 5 MG/5 ML ORAL.SOL UDC PO PRN (17:30)
[2019-12-01] MEDS ORDERED: FENTANYL PF 250 MCG/5ML ONE (17:32)
[2019-12-01] MEDS ORDERED: PROPOFOL 10 MG/ML, 20ML ONE (17:56)
[2019-12-01] MEDS ORDERED: DEXAMETHASONE 4 MG/ML, 1ML ONE (17:56)
[2019-12-01] MEDS ORDERED: CEFAZOLIN 1,000 MG ONE (17:56)
[2019-12-01] MEDS ORDERED: ONDANSETRON 2MG/ML, 2ML ONE (17:56)
[2019-12-01] MEDS ORDERED: ROCURONIUM 10 MG/ML,10ML ONE (17:56)
[2019-12-01] MEDS ORDERED: SUGAMMADEX 200 MG/2 ML IVPush ONE (18:31)
[2019-12-01] MEDS: ENOXAPARIN 40 MG/0.4 ML SQ SCH (22:11)
[2019-12-01 23:10] VITALS: BP 155/84
[2019-12-02 03:28] VITALS: BP 152/81
[2019-12-02] MEDS: LEVOTHYROXINE 50 MCG TABLET PO SCH (04:47)
[2019-12-02 06:20] LABS: BASOPHILS % (AUTO) 0 % (0-1); EOSINOPHILS % (AUTO) 0 % (1-7); LYMPHOCYTES # (AUTO) 0.94 x10^3/uL (1-3.4); LYMPHOCYTES % (AUTO) 9 % (22-44); MD NO; MEAN CORPUSCULAR HEMOGLOBIN 26.4 pg (27.0-34.8); MEAN CORPUSCULAR HGB CONC 31.1 g/dL (32.4-35.8); MEAN PLATELET VOLUME 7.8 fL (7.4-10.4); MONOCYTES # (AUTO) 0.06 x10^3/uL (0.2-0.8); MONOCYTES % (AUTO) 1 % (2-9); NEUTROPHILS # (AUTO) 9.47 x10^3/uL (1.8-6.8); NEUTROPHILS % (AUTO) 90 % (42-75); PLATELET COUNT 566 x10^3/uL (130-400); RED BLOOD COUNT 3.22 x10^6/uL (3.82-5.3); RED CELL DISTRIBUTION WIDTH 18.3 % (9.6-15.2)
[2019-12-02 06:29] VITALS: BP 131/64
[2019-12-02 06:29] LABS: ANION GAP 7 mmol/L (5-15); CALCIUM 8.9 mg/dL (8.5-10.1); CHLORIDE 103 mmol/L (98-107); CREATININE 0.69 mg/dL (0.55-1.02)
[2019-12-02] MEDS: CALCIUM/VITAMIN D3 250-125 TABLET PO SCH (08:07)
[2019-12-02] MEDS: LACTOBACILLUS CHEW TABLET PO SCH ×3 (08:07→20:48)
[2019-12-02] MEDS: FAMOTIDINE 10 MG TAB PO SCH ×2 (08:07→20:47)
[2019-12-02] MEDS: CHOLECALCIFEROL 1,000 UNIT TABLET PO SCH (08:07)
[2019-12-02] MEDS: LISINOPRIL 20 MG TABLET PO SCH (08:07)
[2019-12-02 13:04] VITALS: BP 142/62
[2019-12-02 15:19] LABS: ANA SCREEN NEGATIVE (Negative)
[2019-12-02 19:28] VITALS: BP 109/57
[2019-12-03 00:17] VITALS: BP 148/76
[2019-12-03] MEDS: ENOXAPARIN 40 MG/0.4 ML SQ SCH ×2 (00:21→23:38)
[2019-12-03] MEDS: LEVOTHYROXINE 50 MCG TABLET PO SCH (05:33)
[2019-12-03 05:47] LABS: BASOPHILS # (AUTO) 0.03 x10^3/uL (0-0.1); BASOPHILS % (AUTO) 0 % (0-1); EOSINOPHILS # (AUTO) 0.29 x10^3/uL (0-0.4); EOSINOPHILS % (AUTO) 3 % (1-7); LYMPHOCYTES # (AUTO) 2.11 x10^3/uL (1-3.4); LYMPHOCYTES % (AUTO) 18 % (22-44); MD NO; MEAN CORPUSCULAR HEMOGLOBIN 26.6 pg (27.0-34.8); MEAN CORPUSCULAR HGB CONC 31.1 g/dL (32.4-35.8); MEAN CORPUSCULAR VOLUME 85.6 fL (80-100); MEAN PLATELET VOLUME 7.7 fL (7.4-10.4); MONOCYTES # (AUTO) 0.88 x10^3/uL (0.2-0.8); MONOCYTES % (AUTO) 8 % (2-9); NEUTROPHILS # (AUTO) 8.19 x10^3/uL (1.8-6.8); NEUTROPHILS % (AUTO) 71 % (42-75); PLATELET COUNT 645 x10^3/uL (130-400); RED BLOOD COUNT 3.16 x10^6/uL (3.82-5.3)
[2019-12-03 05:58] LABS: ALANINE AMINOTRANSFERASE 43 U/L (12-78); ALBUMIN 2.2 g/dL (3.4-5.0); ANION GAP 5 mmol/L (5-15); CALCIUM 9.3 mg/dL (8.5-10.1); CHLORIDE 105 mmol/L (98-107)
[2019-12-03 06:01] LABS: ALKALINE PHOSPHATASE 52 U/L (45-117); BILIRUBIN,TOTAL 0.3 mg/dL (0.2-1.0); CREATININE 0.77 mg/dL (0.55-1.02); TOTAL PROTEIN 6.6 g/dL (6.4-8.2)
[2019-12-03 07:51] VITALS: BP 152/83
[2019-12-03] MEDS: LACTOBACILLUS CHEW TABLET PO SCH ×3 (08:52→20:06)
[2019-12-03] MEDS: FAMOTIDINE 10 MG TAB PO SCH ×2 (08:52→20:06)
[2019-12-03] MEDS: LISINOPRIL 20 MG TABLET PO SCH (08:52)
[2019-12-03] MEDS: CALCIUM/VITAMIN D3 250-125 TABLET PO SCH (08:53)
[2019-12-03] MEDS: CHOLECALCIFEROL 1,000 UNIT TABLET PO SCH (08:53)
[2019-12-03 13:59] VITALS: BP 138/74
[2019-12-03 20:33] VITALS: BP 151/73
[2019-12-03] MEDS: DOCUSATE 100 MG CAPSULE PO PRN (23:37)
[2019-12-04 00:44] VITALS: BP 137/75
[2019-12-04] MEDS: LEVOTHYROXINE 50 MCG TABLET PO SCH (06:06)
[2019-12-04 07:29] VITALS: BP 138/68
[2019-12-04] MEDS: CHOLECALCIFEROL 1,000 UNIT TABLET PO SCH (09:00)
[2019-12-04] MEDS: LACTOBACILLUS CHEW TABLET PO SCH ×3 (09:33→20:15)
[2019-12-04] MEDS: LISINOPRIL 20 MG TABLET PO SCH (09:35)
[2019-12-04] MEDS: CALCIUM/VITAMIN D3 250-125 TABLET PO SCH (09:35)
[2019-12-04] MEDS: FAMOTIDINE 10 MG TAB PO SCH (09:35)
[2019-12-04] MEDS ORDERED: BISACODYL 10 MG SUPP PR PRN (11:00)
[2019-12-04] MEDS: POLYETHYLENE GLYCOL 17 GM PACKET PO SCH (13:07)
[2019-12-04] MEDS: DOCUSATE 100 MG CAPSULE PO PRN (13:07)
[2019-12-04] MEDS: SENNA/DOCUSATE TABLET PO SCH (13:12)
[2019-12-04 13:28] VITALS: BP 137/70
[2019-12-04 18:37] VITALS: BP 124/73
[2019-12-04] MEDS: FAMOTIDINE 20 MG TABLET PO SCH (20:15)
[2019-12-05] MEDS: ENOXAPARIN 40 MG/0.4 ML SQ SCH (00:47)
[2019-12-05 01:31] VITALS: BP 125/75
[2019-12-05] MEDS: LEVOTHYROXINE 50 MCG TABLET PO SCH (06:44)
[2019-12-05 07:30] VITALS: BP 150/80
[2019-12-05] MEDS: POLYETHYLENE GLYCOL 17 GM PACKET PO SCH (09:41)
[2019-12-05] MEDS: FAMOTIDINE 20 MG TABLET PO SCH (09:43)
[2019-12-05] MEDS: LISINOPRIL 20 MG TABLET PO SCH (09:43)
[2019-12-05] MEDS: LACTOBACILLUS CHEW TABLET PO SCH (09:43)
[2019-12-05] MEDS: SENNA/DOCUSATE TABLET PO SCH (09:43)
[2019-12-05] MEDS: CHOLECALCIFEROL 1,000 UNIT TABLET PO SCH (09:43)
[2019-12-05] MEDS: CALCIUM/VITAMIN D3 250-125 TABLET PO SCH (09:43)
== END 2019-12-05 12:33 | disposition home health service (06) | DRG 853 ==
LOC: ED 20:00 → EDIP 21:07 → 3N 22:35 → 4NE 12-01 20:00 → DCLOUNGE 12-05 12:27
PROVIDERS: ADMIT Internal Medicine; ATTEND Family Medicine
PROC: 0BBG4ZX Excision of Left Upper Lung Lobe, Percutaneous Endoscopic Approach, Diagnostic (ICD-10-PCS; principal; 2019-12-01 16:30)
DX: A41.9 Sepsis, unspecified organism (principal); J18.9 Pneumonia, unspecified organism; J96.21 Acute and chronic respiratory failure with hypoxia; I50.32 Chronic diastolic (congestive) heart failure; I11.0 Hypertensive heart disease with heart failure; D64.9 Anemia, unspecified; E03.9 Hypothyroidism, unspecified; J45.909 Unspecified asthma, uncomplicated; J98.4 Other disorders of lung; Z87.01 Personal history of pneumonia (recurrent); Z03.818 Encounter for observation for suspected exposure to other biological agents ruled out
CPT/HCPCS: 36415; 71045; 71260; 80048; 80053; 80069; 80202; 82040; 82784; 82787; 83516; 83605; 83735; 83880; 84145; 84443; 84484; 85025; 86038; 86160; 86225; 86235; 86255; 86256; 86361; 86376; 86430; 86431; 86635; 86638; 87040; 87070; 87075; 87102; 87103; 87116; 87176; 87205; 87206; 87305; 87385; 87635; 88309; 93005; C1729; G0378; J0456; J0690; J1100; J1650; J2405; J2543; J2704; J3010; J3370; Q9967; J3475; J7030; J7050

== ENCOUNTER → 2020-04-05 | Outpatient (CLI) | payer MEDICARE | END | disposition home or self-care (01) | LOC: CFH 12:02 | PROVIDERS: ATTEND Internal Medicine | DX: J47.9 Bronchiectasis, uncomplicated (principal); J84.9 Interstitial pulmonary disease, unspecified | CPT/HCPCS: 71250 ==